=== PATIENT | male | born 1985 | race Caucasian/White ===

== ENCOUNTER → 2020-05-28 | Outpatient (CLI) | payer OTHER ==
--- NOTE | 2020-05-28 13:33 | XR ---
EXAMINATION TYPE: XR cervical spine comp DATE OF EXAM: 05/28/2020 CLINICAL HISTORY: pain COMPARISON: NONE TECHNIQUE: Frontal, lateral, oblique, swimmers, and open mouth view of the cervical spine are obtaine d. FINDINGS: The cervical spine is visualized in its entirety from C1 thru the top of T1 level. It is s atisfactory in alignment without evidence of acute fracture or dislocation. The pre-vertebral soft t issue appears within normal limits. Disc spaces are well preserved. The C1-C2 articulation is unremar kable on the open mouth view. The oblique images are within normal limits. IMPRESSION: No acute fracture or dislocation is seen in the cervical spine.ICD 10 NO FRACTURE, INITI AL EVALUATION
--- NOTE | 2020-05-28 13:33 | XR ---
EXAMINATION TYPE: XR shoulder complete LT DATE OF EXAM: 05/28/2020 CLINICAL HISTORY: pain COMPARISON: NONE TECHNIQUE: Three views of the left shoulder are obtained. FINDINGS: There is no acute fracture/dislocation evident. The acromioclavicular and glenohumeral noni int spaces appear within normal limits. The visualized ribs are intact and unremarkable. IMPRESSION: 1. There is no acute fracture or dislocation. ICD 10 NO FRACTURE, INITIAL EVALUATION
== END | disposition home or self-care (01) ==
LOC: RADXRMAIN 13:14
PROVIDERS: ATTEND Emergency Medicine
DX: S16.1XXA Strain of muscle, fascia and tendon at neck level, initial encounter (principal); S46.812A Strain of other muscles, fascia and tendons at shoulder and upper arm level, left arm, initial encounter; M54.2 Cervicalgia; M25.512 Pain in left shoulder
CPT/HCPCS: 72050

== ENCOUNTER → 2020-08-16 | Outpatient (CLI) | payer OTHER ==
--- NOTE | 2020-08-16 18:40 | MR ---
EXAMINATION TYPE: MR shoulder LT wo con DATE OF EXAM: 08/16/2020 COMPARISON: Left shoulder x-ray May 28, 2020. HISTORY: LT side shoulder, neck, and going down arm. Strain injury per order. TECHNIQUE: Multiplanar, multisequence imaging of the left shoulder is performed without contrast. FINDINGS: Rotator Cuff: Distal supraspinatus and infraspinatus tendons are intact. Subscapularis tendon is inta ct. Rotator cuff muscle bulk is preserved. Acromioclavicular Joint: Mild narrowing and capsular hypertrophy. Underlying fat plane maintained. Ty pe II downsloping acromion noted with loss of the underlying fat plane at this level. Glenohumeral Joint: Small effusion. Mild narrowing. No significant spurring. Labrum: The labrum appears grossly intact given limitation of non-arthrogram study. Biceps Tendon: The long head of biceps is in normal location within bicipital groove. Bone marrow signal: A few small subchondral cysts in the superolateral humeral head coronal image 13. Additional 3 mm low T1 lesion medial humeral head coronal image 15 favoring benign bone island. Other: No additional significant abnormality is appreciated. IMPRESSION: No rotator cuff or labral tear. Type II downsloping acromion with suggestion of underlyin g impingement.
== END | disposition home or self-care (01) ==
LOC: RADMRIMAIN 17:41
PROVIDERS: ATTEND Emergency Medicine
DX: M89.8X1 Other specified disorders of bone, shoulder (principal)